=== PATIENT | female | born 1950 | race Caucasian/White ===

== ENCOUNTER → 2017-02-01 | Outpatient (CLI) | payer BC ==
--- NOTE | 2017-02-01 12:11 | RAD ---
Indication: Postmenopausal screening. Bone mineral analysis of the right hip and left forearm was performed. The bone mineral density of the left radius is 0.301 with a T score of -2.1. The bone mineral density of the right femoral neck is 0.686 with a T score -2.9. Impression: Osteopenia of the radius and osteoporosis of the right femoral neck.
== END | disposition home or self-care (01) ==
LOC: DXRAD 11:21
PROVIDERS: ATTEND Nurse Practitioner Family
DX: M81.0 Age-related osteoporosis without current pathological fracture (principal); Z78.0 Asymptomatic menopausal state
CPT/HCPCS: 77080